=== PATIENT | female | born 1995 | race Caucasian/White ===

== ENCOUNTER 2018-03-21 11:32 | Observation (INO) | payer OTHER ==
--- NOTE | 2018-03-18 11:13 | PDGENHP ---
History and Physical History and Physical: Assessment and Plan: 1. Pelvic pain Alysia has symptoms and exam concerning for endometriosis. We discussed all conservative and surgical options. At the end of our discussion, she wishes to move forward with surgical excision of endometriosis. She will see Dr. Ogden preoperatively for an exam. In the meantime, she could try the NuvaRing in a continuous fashion to see if it improves her dysmenorrhea and or the pelvic pain. I also recommended an anti-inflammatory diet, massage, acupuncture, CBD oil, aleve for the daily pain. We discussed yoga and meditation with massage for the anxiety and depression, and that if it persists, she can consider lexapro. She will call me if she needs a prescription. 2. Dysmenorrhea Subjective: Patient ID: Alysia is a 22 y.o. female who presents to [facility] for endometriosis consult. HPI Alysia Kirby presents for a preoperative visit. She is scheduled for a robotic excision of endometriosis and IUD insertion. The risks, benefits, and alternatives were presented and informed consent was obtained. 40 minutes of this 40 minute appointment was spent counceling, reviewing the procedure in detail, and discussing the preoperative and postoperative instructions. Below is a copy of our prior visit note. Alysia is a 21-year-old para 0 here for endometriosis consult. She was referred by her primary Lala Sheffield NP. She has previously been seeing Dr. Guo in [place] for [facility] [employer]. Alysia has a long history of pelvic pain and dysmenorrhea. Her periods started at 11, they have been painful and heavy since onset. She bleeds for 6-7 days, the first 2-4 days of the heaviest. She cannot use tampons anymore because of the pain, so she wears a pad and has to change it every 2-3 hours. Her periods are normally regular. She has always had pelvic pain with her periods, and some occasional pain throughout the month. However, her pain intensified significantly starting in May or June of this past year. In May she had an IUD insertion that was unsuccessful, she notes it was a copper IUD. Since then she has had some unintentional weight loss, worsening pelvic pain that is greater on her left versus the right. This feels like an ovarian pain and cramping. She also has diarrhea and constipation, mostly diarrhea to where she will have greater than 6 bowel movements per day. She also has experienced nausea and abdominal pain with bloating. She is having a difficult time with exercise as it causes increased pain. She has been to the GI for a workup due to the gastrointestinal issues, she had an endoscopy and a colonoscopy that were only significant for some reflux esophagitis. She takes pantoprazole daily now. Her daily pain feels like a pulling and stabbing pain. It is irregular during the month, some days are worse than others. With menses, it feels like a twisting inside of her. This is a constant pain. She typically takes Tylenol, Midol and uses heat for the pain. This pain radiates everywhere to her chest, back, hips and legs. The pain is worse with her heavier days. It is often painful to sit due to the pain. She has a lot of pain in her pelvic crests. She also feels some low chest pain and had one episode of chest pain with menses last month. She has pain with constipation, and notes that the diarrhea symptoms correlates with her menses. She also has painful intercourse, this is almost every time she has intercourse. This feels both superficial and deep. She tried pelvic floor physical therapy with PT specialists in [place], it helps for a couple of days but then the pain returns. She has been doing this for the last 2 months. She has had approximately 6 sessions. Alysia also notes that she has had some depression and anxiety since the onset of this worsening pain. She also notes that last week she went for a run on and on Monday she began having pain and burning with urination. That has gotten a little bit better, but she thinks she might still have some issues with her urination. 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 She works full-time and lives in [place]. Her last menstrual period was October 24. She has taken a test at home since then that has been negative. CURRENT MEDICATIONS: Current Outpatient Medications Medication Sig Lactobacillus acidophilus (PROBIOTIC PO) MILK THISTLE PO hyoscyamine (ANASPAZ,LEVSIN) 0.125 mg tablet as needed. multivitamin,tx-minerals (SUPER THERA OSVALDO M) tablet Take 1 tablet by mouth. No current facility-administered medications for this visit. ALLERGIES: Patient has no known allergies. I have reviewed, verified and agree with the past medical, surgical and history as documented by the MA today. Review of Systems Constitutional: Positive for fatigue. Cardiovascular: Positive for chest pain (with menses). Gastrointestinal: Positive for abdominal distention (bloating), abdominal pain, constipation, diarrhea and nausea. Genitourinary: Positive for dyspareunia, dysuria, menstrual problem and pelvic pain. Musculoskeletal: Positive for arthralgias, back pain and myalgias. Skin: Negative. Objective: Vital Signs: Visit Vitals BP 126/84 Pulse 66 Temp 36.6 C (97.9 F) (Temporal) Resp 16 Ht 1.6 m (5' 3") Wt 63 kg (138 lb 12.8 oz) SpO2 99% BMI 24.59 kg/m Physical Exam Constitutional: She is oriented to person, place, and time. She appears well- developed and well-nourished. Cardiovascular: Normal rate. Pulmonary/Chest: Effort normal. Abdominal: Soft. Musculoskeletal: Normal range of motion. Neurological: She is alert and oriented to person, place, and time. Skin: Skin is warm and dry. Psychiatric: She has a normal mood and affect. Her behavior is normal. Pelvic: Normal external genitalia. Tenderness bilateral uterosacral ligaments, posterior cervix and uterus. No lesions or masses. Tenderness bilateral adnexa, no masses noted. Procedures DATA: N/A TIME/COUNSELING: I personally spent a total of 50 minutes. Of that 45 minutes was counseling/ coordination of patient's care. See my note above for details. Donis Ogden MD
[2018-03-21] MEDS ORDERED: PHENAZOPYRIDINE HCL 200 MG TAB PO ONE (11:41)
[2018-03-21] MEDS ORDERED: ceFAZolin 2 GM/DEXTROSE 100 ML IV ONE (11:41)
[2018-03-21] MEDS ORDERED: GABAPENTIN 300 MG CAP PO ONE (11:41)
[2018-03-21] MEDS ORDERED: ACETAMINOPHEN 500 MG TAB PO ONE (11:41)
[2018-03-21] MEDS ORDERED: LR 1,000 ML IV ONE (11:43)
--- NOTE | 2018-03-21 12:45 | PDHPUP ---
History & Physical Update H&P update statement: This history and physical update is based on an assessment of the patient which was completed after admission or registration (within 24 hours), but prior to the surgery/procedure. H&P update: H&P reviewed & patient examined, no change in patient's condition since H&P completed
--- NOTE | 2018-03-21 12:55 | PDANEPAE ---
ANE History of Present Illness 22 YO for laparoscopy ANE Past Medical History - Cardiovascular History Hx Hypertension: No Hx Arrhythmias: No Hx Chest Pain: No Hx Coronary Artery / Peripheral Vascular Disease: No Hx CHF / Valvular Disease: No Hx Palpitations: No - Pulmonary History Hx COPD: No Hx Asthma/Reactive Airway Disease: Yes Hx Recent Upper Respiratory Infection: No Hx Oxygen in Use at Home: No Hx Sleep Apnea: No Sleep Apnea Screening Result - Last Documented: Negative Pulmonary History Comment: EXERCISE INDUCED ASTHMA - Neurologic History Hx Cerebrovascular Accident: No Hx Seizures: No Hx Dementia: No - Endocrine History Hx Diabetes: No - Renal History Hx Renal Disorders: No - Liver History Hx Hepatic Disorders: No - Neurological & Psychiatric Hx Hx Neurological and Psychiatric Disorders: No - Cancer History Hx Cancer: No - Congenital Disorder History Hx Congenital Disorders: No - GI History Hx Gastrointestinal Disorders: No - Other Health History Other Health History: NEG - Chronic Pain History Chronic Pain: Yes (OVARIES,GROIN AREA) - Surgical History Prior Surgeries: MARY BREAST REDUCTION 01/2015. COLONOSCOPY ANE Review of Systems Review of Systems: - Exercise capacity METS (RN): 4 METS ANE Patient History - Allergies Allergies/Adverse Reactions: No Known Allergies Allergy (Unverified 03/09/18 11:32) - Home Medications Home medications: home medication list seen and reviewed Home Medications: ACETAMINOPHEN PRN 03/09/18 [Last Taken 03/18/18] Albuterol 5 mg/ml INH PRN 03/09/18 [Last Taken 1 Week Ago ~03/14/18] Aspirin PRN 03/09/18 [Last Taken 1 Week Ago ~03/14/18] Herbals/Supplements -Info Only DAILY 03/09/18 [Last Taken 1 Week Ago ~03/14/18] - NPO status NPO Status: no food or drink >8 hours NPO Since - Liquids (Date): 03/21/18 NPO Since - Liquids (Time): 09:45 NPO Since - Solids (Date): 03/20/18 NPO Since - Solids (Time): 21:00 - Anes Hx Anes Hx: no prior problems - Smoking Hx Smoking Status: Current some day smoker ANE Labs/Vital Signs - Vital Signs Blood Pressure: 124/81 Heart Rate: 84 Respiratory Rate: 16 O2 Sat (%): 94 Height: 5 ft 3 in Weight: 61.235 kg ANE Physical Exam - Airway Neck exam: FROM Mallampati Score: Class 2 Mouth exam: normal dental/mouth exam - Pulmonary Pulmonary: no respiratory distress - Cardiovascular Cardiovascular: regular rate and rhythym - ASA Status ASA Status: II ANE Anesthesia Plan Anesthesia Plan: general endotracheal anesthesia
[2018-03-21] MEDS ORDERED: SCOPOLAMINE HYDROBROMIDE 1 MG/3 DAYS PATCH TD ONE (12:56)
[2018-03-21] MEDS ORDERED: MIDAZOLAM 2 MG/2 ML VIAL IVP ONE (12:56)
[2018-03-21] MEDS ORDERED: SCOPOLAMINE HYDROBROMIDE 1 MG/3 DAYS PATCH TD SCH (13:00)
[2018-03-21] MEDS ORDERED: PROPOFOL/EMULSION 500 MG/50 ML BOTTLE IV ONE (13:14)
[2018-03-21] MEDS ORDERED: fentaNYL 250 MCG/5 ML INJ ONE (13:14)
[2018-03-21] MEDS ORDERED: ROCURONIUM 50 MG/5 ML VIAL ONE ×2 (13:15)
[2018-03-21] MEDS ORDERED: DEXAMETHASONE 4 MG/ML VIAL ONE (13:16)
[2018-03-21] MEDS ORDERED: METOCLOPRAMIDE 10 MG/2 ML VIAL ONE (13:16)
[2018-03-21] MEDS ORDERED: BUPIVACAINE/EPI 0.5% 30 ML SDV ONE (13:24)
[2018-03-21] MEDS ORDERED: ONDANSETRON 4 MG/2 ML VIAL ONE ×2 (14:35→15:59)
[2018-03-21] MEDS ORDERED: KETOROLAC 30 MG/1 ML SDV ONE (14:35)
[2018-03-21] MEDS ORDERED: SUGAMMADEX SODIUM 200 MG/2 ML VIAL IVP ONE (14:39)
--- NOTE | 2018-03-21 14:56 | POSTOPPROG ---
Post Op Note Date of Operation: 03/21/18 Surgeon: Donis Ogden Primary Health Organisation Manager: Alexsandra Abdi Anesthesia: GET(General Endotracheal) Pre-op Diagnosis: Endometriosis Post-op Diagnosis: Same Procedure: Robotic excision of endo, bilat ureterolysis and ovarian pexy Findings: Endo Inf/Abcess present in the surg proc area at time of surgery?: No EBL: Minimal Complications: None
[2018-03-21] MEDS ORDERED: PROMETHAZINE HCL 25 MG/ML INJ IVP PRN (14:57)
[2018-03-21] MEDS ORDERED: HYDROmorphONE/DILAUDID 1 MG/ML INJ IVP PRN (14:57)
[2018-03-21] MEDS ORDERED: ONDANSETRON DISINTEGRATING 4 MG TAB PO PRN (14:57)
[2018-03-21] MEDS ORDERED: ONDANSETRON 4 MG/2 ML VIAL IVP PRN ×2 (14:57→15:02)
[2018-03-21] MEDS ORDERED: LR 1,000 ML IV SCH (15:00)
[2018-03-21] MEDS ORDERED: oxyCODONE IR 5 MG TAB PO PRN (15:02)
[2018-03-21] MEDS ORDERED: NALOXONE HCL 0.4 MG/ML INJ IVP PRN (15:02)
--- NOTE | 2018-03-21 15:03 | POSTANESTH ---
Post Anesthetic Evaluation Cardiovascular Status: Normal, Stable Respiratory Status: Normal, Stable Level of Consciousness/Mental Status: Can Participate in Eval Pain Control: Adequate, Prn Tx Ordered Nausea/Vomiting Control: Adequate, Prn Tx Ordered Complications Possibly Related to Anesthesia: None Noted
[2018-03-21] MEDS ORDERED: fentaNYL 100 MCG/2 ML INJ ONE (15:06)
[2018-03-21] MEDS: fentaNYL 100 MCG/2 ML INJ IVP PRN ×2 (15:12→15:17)
[2018-03-21] MEDS ORDERED: HYDROmorphONE/DILAUDID 2 MG/ML INJ ONE (15:14)
[2018-03-21] MEDS: HYDROmorphONE/DILAUDID 2 MG/ML INJ IVP PRN ×2 (15:15→15:30)
[2018-03-21] MEDS ORDERED: DIAZEPAM 5 MG/ML 1 ML SYR ONE (15:42)
[2018-03-21] MEDS ORDERED: DIAZEPAM 5 MG/ML 1 ML SYR IVP PRN (15:46)
[2018-03-21] MEDS: GABAPENTIN 300 MG CAP PO SCH ×2 (16:54→22:15)
[2018-03-21] MEDS: OXYCODONE/APAP 5/325 TAB PO PRN ×2 (18:06→22:15)
[2018-03-21] MEDS: KETOROLAC 30 MG/1 ML SDV IVP SCH (20:10)
[2018-03-21] MEDS: SIMETHICONE 80 MG TAB CHEW PO SCH ×2 (20:46→22:16)
[2018-03-22] MEDS: OXYCODONE/APAP 5/325 TAB PO PRN ×2 (02:09→07:53)
[2018-03-22] MEDS: KETOROLAC 30 MG/1 ML SDV IVP SCH ×2 (02:09→07:50)
[2018-03-22 04:56] VITALS: BP 90/61
[2018-03-22] MEDS: SIMETHICONE 80 MG TAB CHEW PO SCH (07:58)
--- NOTE | 2018-03-22 09:24 | GOP ---
[f rep st] OPERATIVE REPORT DATE OF OPERATION: 03/21/2018 SURGEON: Donis Ogden MD ORGANIC CHEMISTRY TEACHER: TOM Daly ANESTHESIA: General. PREOPERATIVE DIAGNOSIS: 1. Dysmenorrhea. 2. Endometriosis. 3. Midcycle pain. 4. Cyclic chest pain. POSTOPERATIVE DIAGNOSIS: 1. Dysmenorrhea. 2. Endometriosis. 3. Midcycle pain. 4. Cyclic chest pain. PROCEDURE PERFORMED: 1. Robotic excision of endometriosis in posterior cul-de-sac, bilateral pelvic sidewalls. 2. Excision of diaphragmatic lesion. 3. Bilateral ureterolysis. 4. Bilateral ovariopexy. 5. Insertion of Kyleena intrauterine device. FINDINGS: SPECIMENS: 1. Diaphragmatic lesion. 1. Pelvic peritoneum with endometriosis. 2. ESTIMATED BLOOD LOSS: Scant. DESCRIPTION OF PROCEDURE: The patient was taken to the operating room where she was identified. Gen eral anesthesia was administered and found to be adequate. She was placed in the lithotomy position and prepared and draped in normal sterile fashion. A Vincent catheter was placed in her bladder. A Hu lka tenaculum was placed in the uterus for manipulation. An 8 mm infraumbilical incision was made with a scalpel. The Veress needle with CO2 gas flowing was advanced into the peritoneal cavity. The abdomen was then insufflated with carbon dioxide gas. The 8 mm trocar followed by the laparoscope were then inserted. The upper abdomen was examined. She had a lesion of endometriosis just lateral to the falciform ligament on the right hemidiaphragm. There were no other lesions on the anterior chest wall, liver, gallbladder, stomach, or upper abdominal bow el. Two lateral ports were placed on the right, one on the left under direct visualization. The les ion was excised with the laparoscopic scissors. Hemostasis was present. She then was placed in [place] position and the da Candice robot docked on the left side. The instruments were then brought into the abdominal cavity under direct visualization. She had multiple areas of endometriosis in th e posterior cul-de-sac and bilateral pelvic sidewalls including overlying both ureters. There were n o lesions on the uterus, tubes, or ovaries. There were no lesions in the anterior cul-de-sac. The posterior cul-de-sac peritoneum from the distal rectum up to the cervix and laterally from the ut erosacral ligament was then completely excised. A bilateral ovariopexy was then performed by attachi ng each ovary to the ipsilateral round ligaments near the internal inguinal ring with 3-0 Vicryl Rapi de suture. She required a bilateral ureterolysis to remove the endometriosis overlying both ureters. The peritoneum over the pelvic brims was incised. The ureters were dissected free and gently later alized off the overlying peritoneum and endometriosis from the pelvic brim down to the uterine arteri es. Once this was accomplished, the entire pelvic sidewall and peritoneum with endometriosis was com pletely excised bilaterally. The pelvis was irrigated with sterile saline, and hemostasis was presen t. The robot was then undocked. Incisions were closed with 4-0 Monocryl. The Hulka tenaculum was removed. The Kyleena IUD was gently advanced through the cervix to the fundu s of the uterus. The arms were engaged and the strings trimmed to 3 cm. Anesthesia was reversed, an d the patient taken to PACU awake, in stable condition. COMPLICATIONS: None. DISPOSITION: Patient stable to PACU. /[id number]/MODL
[2018-03-22] MEDS: GABAPENTIN 300 MG CAP PO SCH (09:53)
--- NOTE | 2018-03-22 10:24 | GDS ---
[f rep st] DISCHARGE SUMMARY DISCHARGE DIAGNOSIS: Endometriosis. PROCEDURES: 1. Robotic excision of endometriosis in posterior cul-de-sac, bilateral pelvic sidewalls. 2. Excision of diaphragmatic lesion. 3. Bilateral ureterolysis. 4. Bilateral ovariopexy. 5. Kyleena intrauterine device insertion. HISTORY: Alysia is a 22-year-old female with a long history of pelvic pain. She was taken to the operating room on 03/21/2018 where she underwent excision of endometriosis. Postoperatively, her postoperative care was uneventful. The morning after surgery, she was ambulating, voiding, and tolerating a general diet. She was discharged home on postoperative day #1 in good condition. Medications included ibuprofen and Percocet for pain. She is to follow up with me in 2 weeks. /[id number]/MODL MTDD
== END 2018-03-22 11:30 | disposition home or self-care (01) ==
LOC: FSGY 11:32 → F3E 14:57 → FOB 16:35
PROVIDERS: ADMIT Obstetrics & Gynecology; ATTEND Obstetrics & Gynecology
DX: N80.0 Endometriosis of uterus (principal); E07.89 Other specified disorders of thyroid; N94.0 Mittelschmerz
CPT/HCPCS: 58300; 58559; 58740; G0378; J0690; J1100; J1170; J1885; J2250; J2405; J2704; J2765; J3010; J3360